=== PATIENT | female | born 1985 | race Two or more races ===

== ENCOUNTER 2017-11-08 05:55 | Inpatient (IN) | payer BC ==
[~2017-11-08] VITALS: Ht 154.9 cm; Wt 70.8 kg
[2017-11-08] VITALS (14 sets, daily range): BP systolic 103–118; BP diastolic 52–74
[2017-11-08] MEDS ORDERED: METFORMIN HCL500 M1 ORAL (06:48)
[2017-11-08] MEDS ORDERED: [UNRECOGNIZED DRUG - OTHER] PO (06:48)
[2017-11-08] MEDS ORDERED: cefOXitin Sod 2 GM in D5W 110 ML IVPB ONE (07:00)
[2017-11-08] MEDS ORDERED: Ropivacaine 5mg/ml Vial 30ml INJ ONE (07:02)
[2017-11-08] MEDS ORDERED: Bupivacaine 0.5% Inj 30 ml vial INJ ONE (07:02)
[2017-11-08] MEDS ORDERED: NS 55 ML IV ONE (07:03)
--- NOTE | 2017-11-08 07:07 | Anethesia Preoperative Eval ---
Anesthesia Pre-op PMH/ROS General Date of Evaluation: Nov 08, 2017 Anesthesiologist: Jude ASA Score: ASA 1 Mallampati Score Class I : Soft palate, uvula, fauces, pillars visible Class II: Soft palate, uvula, fauces visible Class III: Soft palate, base of uvula visible Class IV: Only hard plate visible Mallampati Classification: Class II Surgeon: [place] Diagnosis: Uterine fibroids Surgical Procedure: Open myomectomy Anesthesia History: none Family History: no anesthesia problems Allergies: Coded Allergies: No Known Allergies (Unverified , 07/12/17) Medications: see eMAR Past Medical History Cardiovascular: Denies: HTN, CAD, AR, valve dz, arrhythmia, other Pulmonary: Denies: asthma, COPD, SERGIO, other Gastrointestinal/Genitourinary: Denies: GERD, CRI, ESRD, other Neurologic/Psychiatric: Denies: dementia, CVA, depression/anxiety, TIA, other Endocrine: Denies: DM, hypothyroidism, steroids, other HEENT: Denies: cataract (L), cataract (R), glaucoma, AKHIOK (L), AKHIOK (R), other Hematology/Immune: Denies: anemia, DVT, bleeding disorder, other Musculoskeletal/Integumentary: Denies: OA, RA, DJD, DDD, edema, other PSxH Narrative: D&C, anoscopy Anesthesia Pre-op Phys. Exam Physician Exam Last Vital Signs Date Time Temp Pulse Resp B/P (MAP) Pulse Ox O2 Delivery O2 Flow Rate FiO2 11/08/17 06:56 97.7 68 20 104/62 (76) 99 97.7 11/08/17 06:49 Room Air Constitutional: NAD Cardiovascular: RRR Respiratory: CTA Airway Exam Mallampati Score: Class II MO: full ROM: full Teeth: intact Anesthesia Pre-op A/P Labs see chart Urine Test Test 11/08/17 06:20 Urine HCG, Qualitative Pending Studies Pre-op Studies: EKG - sr Risk Assessment & Plan Assessment: ASA I Plan: GA Status Change Before Surgery: No Pre-Antibiotics Drug: Cefoxitin 2g Given Within 1 Hr of Incision: Yes DIANE BASURTO M.D. Nov 08, 2017 07:07
[2017-11-08] MEDS ORDERED: fentaNYL 100 mcg/2 mL IV ONE (07:08)
[2017-11-08] MEDS ORDERED: Midazolam 2mg/2ml Inj ONE (07:08)
[2017-11-08] MEDS ORDERED: Lidocaine 1% MPF 10mg/ml 5ml ONE (07:08)
[2017-11-08] MEDS ORDERED: Propofol 200mg/20ml IV ONE (07:08)
[2017-11-08] MEDS ORDERED: Zemuron 50mg/5ml Inj IV ONE (07:11)
[2017-11-08] MEDS ORDERED: LR 1000ml 1,000 ML IVLG SCH (07:14)
[2017-11-08] MEDS ORDERED: fentaNYL 100 mcg/2 mL IV PRN (07:15)
[2017-11-08] MEDS ORDERED: Hydromorphone 0.5mg/0.5ml inj IVP PRN (07:15)
[2017-11-08] MEDS ORDERED: Labetalol 5mg/ml 20ml vial IV PRN (07:15)
[2017-11-08] MEDS ORDERED: Midazolam 2mg/2ml Inj IVP PRN (07:15)
[2017-11-08] MEDS ORDERED: DiphenhydrAMINE 50mg/ml Inj IVP PRN (07:15)
[2017-11-08] MEDS ORDERED: Ketorolac 30mg Inj IV PRN (07:15)
[2017-11-08] MEDS ORDERED: cefOXitin 2gm Inj ONE (07:23)
[2017-11-08] MEDS ORDERED: LR 1000ml ONE (08:00)
[2017-11-08] MEDS ORDERED: NS Irrig 1000ml ONE (08:00)
[2017-11-08] MEDS ORDERED: Sterile Water Irrig 1000ml IRRIG ONE (08:00)
[2017-11-08] MEDS ORDERED: Metoclopramide 10mg/2ml Inj ONE (08:00)
[2017-11-08] MEDS ORDERED: Dexamethasone 4mg/ml vial ONE (08:00)
--- NOTE | 2017-11-08 08:02 | Pre-Procedure Note/Attestation ---
Pre-Procedure Note/Attestation Complete Prior to Procedure Planned Procedure: not applicable Procedure Narrative: Abdominal Myomectomy Indications for Procedure Pre-Operative Diagnosis: Large Uterine Fibroids Attestation I attest that I discussed the nature of the procedure; its benefits; risks and complications; and alternatives (and the risks and benefits of such alternatives ), prior to the procedure, with the patient (or the patient's legal home furnishings sales representative). I attest that, if there was a reasonable possibility of needing a blood transfusion, the patient (or the patient's legal home furnishings sales representative) was given the [facility] standardized written summary, pursuant to the [place] Blood Safety Act ([place] Health and Safety Code # 1645, as amended). I attest that I re-evaluated the patient just prior to the surgery and that there has been no change in the patient's H&P, except as documented below: NONE GIOVANI CERVANTES Nov 08, 2017 08:02
--- NOTE | 2017-11-08 08:05 | Brief Operative Note ---
Immediate Post Operative Note Operative Note Pre-op Diagnosis: Large Uterine Fibroids Procedure: Abdominal Myomectomy Post-op Diagnosis: Extensive Uterine Fibroids Post-op Diagnosis: same as pre-op Surgeon: Giovani Cervantes MD Van Loader: Ida Mckeon MD Anesthesiologist: Marietta Peraza MD Anesthesia: general Specimen: yes - Multiple Myomas Complications: none Condition: stable Fluids: LR @150 cc/hr Estimated Blood Loss: volume - 200 ml Drains: none Implant(s) used?: No GIOVANI CERVANTES Nov 08, 2017 08:05
--- NOTE | 2017-11-08 08:09 | Immediate Post-Op Evaluation ---
Immediate Post-Op Evalulation Immediate Post-Op Evalulation Procedure: open myomectomy Date of Evaluation: Nov 08, 2017 Time of Evaluation: 10:44 IV Fluids: 2.1L Blood Products: 0 Estimated Blood Loss: 200 Urinary Output: 100 Blood Pressure Systolic: 107 Blood Pressure Diastolic: 57 Pulse Rate: 92 Respiratory Rate: 16 O2 Sat by Pulse Oximetry: 99 Temperature (Fahrenheit): 97.3 Pain Score (1-10): 0 Nausea: No Vomiting: No Complications 0 Patient Status: awake, reacts, patent, none Hydration Status: adequate Drug: Cefoxitin 2g Given Within 1 Hr of Incision: Yes Time Given: 08:05 DIANE BASURTO M.D. Nov 08, 2017 08:09
[2017-11-08] MEDS ORDERED: Rate Change PCA 1 Each MISC PRN ×2 (11:45→12:00)
[2017-11-08] MEDS ORDERED: PCA Education Pamphlet MISC ONE ×2 (11:45→12:00)
[2017-11-08] MEDS: PCA Morphine 1mg/ml 30 ML IV PRN ×2 (12:12→20:15)
[2017-11-08] MEDS ORDERED: Morphine Sulfate 2mg/ml Inj IV PRN (13:15)
[2017-11-08] MEDS ORDERED: Morphine Sulfate 4mg/ml Inj IV PRN (13:15)
[2017-11-08] MEDS: cefOXitin Sod 1 GM in D5W 55 ML IVPB SCH ×2 (14:48→20:18)
[2017-11-08] MEDS: Ketorolac 30mg Inj IV SCH ×2 (14:49→20:18)
[2017-11-08] MEDS: 1/2NS w/KCl 20mEq 1000ml 1,000 ML IV SCH ×2 (14:50→21:21)
[2017-11-08] MEDS ORDERED: 1/2NS w/KCl 20mEq 1000ml 1,000 ML IV SCH (15:00)
[2017-11-08] MEDS ORDERED: PCA shift volume MISC SCH (19:00)
[2017-11-08] MEDS: PCA shift volume MISC SCH (19:09)
[2017-11-09] VITALS: BP 95/55
[2017-11-09] MEDS: Ketorolac 30mg Inj IV SCH ×4 (01:41→19:45)
[2017-11-09] MEDS: cefOXitin Sod 1 GM in D5W 55 ML IVPB SCH ×4 (01:41→19:45)
[2017-11-09] MEDS: 1/2NS w/KCl 20mEq 1000ml 1,000 ML IV SCH ×3 (03:32→17:47)
[2017-11-09 04:00] VITALS: BP 95/60
[2017-11-09] MEDS: PCA shift volume MISC SCH (07:12)
[2017-11-09 08:00] VITALS: BP 95/62
[2017-11-09 12:00] VITALS: BP 93/56
[2017-11-09] MEDS ORDERED: oxyCODONE HCL/Acetaminophen 5/325mg ORAL PRN (13:00)
--- NOTE | 2017-11-09 13:31 | 48 Hour Post Anesthesia Eval ---
Post Anesthesia Evaluation Procedure: open myomectomy Date of Evaluation: Nov 09, 2017 Time of Evaluation: 13:29 Blood Pressure Systolic: 94 0: 52 Pulse Rate: 76 Respiratory Rate: 20 Temperature (Fahrenheit): 97.4 O2 Sat by Pulse Oximetry: 98 Airway: patent Nausea: No Vomiting: No Pain Intensity: 2 Hydration Status: adequate Cardiopulmonary Status: stable Mental Status/LOC: patient returned to baseline Follow-up Care/Observations: n/a Post-Anesthesia Complications: none Follow-up care needed: N/A Michael Young MD Nov 09, 2017 13:31
[2017-11-09 16:00] VITALS: BP 102/64
--- NOTE | 2017-11-09 19:07 | General Progress Note ---
Progress Note Progress Note POD #1 s/p extensive myomectomy Good pain control with Toradol 30 q 6 hrs Ambulating, voiding, marc PO fluids Incision dry, clean, intact Dressing removed CBC, CMP in AM GIOVANI CERVANTES Nov 09, 2017 19:07
[2017-11-09 20:00] VITALS: BP 95/54
[2017-11-10] VITALS: BP 98/56
[2017-11-10] MEDS: cefOXitin Sod 1 GM in D5W 55 ML IVPB SCH ×3 (01:10→13:43)
[2017-11-10] MEDS: Ketorolac 30mg Inj IV SCH ×3 (02:00→13:43)
[2017-11-10 04:00] VITALS: BP 100/66
[2017-11-10 06:59] LABS: BASOPHILS % (AUTO) 0.5 % (0.0-2.0); HEMATOCRIT 34.7 % (37.0-47.0); HEMOGLOBIN 11.5 G/DL (12.0-16.0); LYMPHOCYTES % (AUTO) 17.7 % (20.0-45.0); MEAN CORPUSCULAR VOLUME 95 FL (80-99); MONOCYTES % (AUTO) 7.3 % (1.0-10.0); NEUTROPHILS % (AUTO) 73.5 % (45.0-75.0); PLATELET COUNT 149 K/UL (150-450); RED BLOOD COUNT 3.63 M/UL (4.20-5.40); RED CELL DISTRIBUTION WIDTH 11.7 % (11.6-14.8); WHITE BLOOD COUNT 8.9 K/UL (4.8-10.8)
[2017-11-10 07:14] LABS: ALANINE AMINOTRANSFERASE 25 U/L (12-78); ALBUMIN 2.9 G/DL (3.4-5.0); ALBUMIN/GLOBULIN RATIO 0.8 (1.0-2.7); ALKALINE PHOSPHATASE 46 U/L (46-116); ANION GAP 5 mmol/L (5-15); ASPARTATE AMINO TRANSFERASE 32 U/L (15-37); BILIRUBIN,TOTAL 0.4 MG/DL (0.2-1.0); BLOOD UREA NITROGEN 11 mg/dL (7-18); CALCIUM 8.5 MG/DL (8.5-10.1); CARBON DIOXIDE 28 MMOL/L (21-32); CHLORIDE 106 MMOL/L (98-107); CREATININE 0.8 MG/DL (0.55-1.30); POTASSIUM 4.4 MMOL/L (3.5-5.1); SODIUM 138 MMOL/L (136-145)
[2017-11-10 08:00] VITALS: BP 119/76
[2017-11-10 12:00] VITALS: BP 105/83
[2017-11-10 16:00] VITALS: BP 118/79
[2017-11-10] MEDS ORDERED: ADVIL200 M2 ORAL (16:37)
--- NOTE | 2017-11-13 08:58 | Discharge Summary ---
Discharge Summary Hospital Course Date of Admission Nov 08, 2017 at 05:55 Date of Discharge Nov 10, 2017 at 17:05 Admitting Diagnosis large uterine fibroids Reason for Hospitalization: Elective surgery SONA Hendrix is a 32 year old female who was admitted on Nov 08, 2017 at 05: 55 for large uterine fibroids. Patient was admitted for elective surgery. Procedures s/p 11/08/[address] Luisa Leary Hospital Course s/p surgery course of recovery uneventful initially IVF pain control incision clean, dry and intact dressing removed ambulated freely voided freely labs stable bowel regimen instituted stable for discharge home discharge postop instructions provided follow-up with surgeon as advised in 2 weeks FINAL DIAGNOSES Large uterine fibroids s/p abdominal myomectomy Discharge Medications Continued Medications: Ibuprofen* (Advil*) 200 Mg Capsule 200 MG ORAL Q6H PRN for For Pain, CAP (This prescription has been renewed) Discharge Condition Upon Discharge: stable Discharge Disposition Patient was discharged to Home (01) Discharge Instructions Discharge Instructions Special Instructions I have been assigned to complete a D/C Summary on this account. I was not involved in the patient management Ailyn Sánchez NP Nov 13, 2017 08:58
--- NOTE | 2017-11-15 23:45 | Operative Note - Dictated ---
DATE OF OPERATION: 11/08/2017 PREOPERATIVE DIAGNOSIS: Large uterine fibroid. POSTOPERATIVE DIAGNOSIS: Large uterine fibroid. PROCEDURE PERFORMED: Video hysteroscopy and abdominal myomectomy. SURGEON: Maninder Leary M.D. TRACER BULLET SECTION SUPERVISOR: Dr. Nelson Mckeon. ANESTHESIA: General endotracheal. ANESTHESIOLOGIST: Marietta Peraza M.D. PROCEDURE IN DETAIL: After all the appropriate consents were signed, the patient was brought to the operating room, placed on table in supine position. General endotracheal anesthesia was induced without complication. The patient was then placed in a dorsal lithotomy position. Perineum, vagina and abdomen prepped and draped in the usual sterile fashion for the procedure. The patient was then examined under anesthesia. Uterus appeared to be large and mobile. The procedure began in the vaginal portion where the cervix was dilated. Video hysteroscope was introduced. Uterine cavity was visualized. There did not appear to be any submucosal fibroids and the cavity was well visualized. At this time, uterine manipulator was placed and the procedure continued at its abdominal portion. Pfannenstiel incision was made and was carried through subcutaneous tissue. The fascia was reached. The fascial incision was made and extended bilaterally to expose the rectus muscle. Rectus muscle was exposed both inferiorly and superiorly by selecting the fascia. The rectus was parted in the midline and the peritoneum was entered sharply. At this time, the fibroid was identified. Uterus was visualized. At this time, Allis retractor was placed and the fibroid was well visualized. It was first injected with vasopressin solution and the procedure continued with incising of the serosa and exposing the fibroid tissue. The fibroid was removed in small portions without the ability to exteriorize the uterus. As the procedure continued and a small portion of the fibroids were removed, the uterus was gradually reduced in size and was finally externalized. The uterine defect was examined and all the areas affected by the fibroids were removed. There was also an area of the uterus, which was likely adenomyosis, which was also out to decrease the effect of adenomyosis. At this time, the uterine cavity was palpated and there was an area of defect as the fibroid was removed. The entire defect was closed in multiple areas closing the endometrial opening . The last layer of closure was subserosal and then sutures left above the serosal layer. Complete hemostasis was achieved and the uterus was now placed back in pelvis. At this time, the abdomen was thoroughly irrigated with multiple batches of saline and all debris and blood were suctioned. Once again, hemostasis was noted along the uterine incision. At this time, retractor was removed and peritoneum was closed first using 2-0 Vicryl suture. This was followed by approximation of the rectus muscle in the midline by a running Vicryl suture. The fascia was closed next with 0 Vicryl suture in a running fashion and placed bilaterally. The subcutaneous tissue was closed with plain suture and the skin was closed in a subcuticular fashion. At this time, the patient was placed back in the supine position. Dressing was applied and the patient was awakened from general anesthesia. She was transferred to the recovery room in excellent condition. Maninder Leary M.D. DR: CELINA JOB#: [id number] CC:
== END 2017-11-10 17:05 | disposition home or self-care (01) | DRG 743 ==
LOC: SDSOVERFLO 05:55 → 3E 12:30
DX: D25.9 Leiomyoma of uterus, unspecified (principal); E66.9 Obesity, unspecified
CPT/HCPCS: 36415; 80053; 81025; 85025; 86850; 86900; 86901; 87081; 94003; 94150; J2250; J2405; J2765